=== PATIENT | male | born 1990 | race Caucasian/White ===

== ENCOUNTER 2019-10-07 13:07 | Emergency (ER) | payer BC, SELFPAY ==
[2019-10-07] MEDS ORDERED: Adacel (T-DAP) 0.5 ML SYRINGE ONE (13:32)
--- NOTE | 2019-10-07 14:00 | CT ---
CT head noncontrast HISTORY: Injury. Headache. FINDINGS: There is no evidence of acute intracranial hemorrhage or infarct. The ventricles appear nor mal in size, shape and position. There is no mass effect or shift of midline structures. Visualized paranasal sinuses remain well aerated. IMPRESSION: No acute intracranial abnormalities are demonstrated.
[2019-10-07] MEDS ORDERED: Ketorolac Tromethamine 30 MG/ML VIAL ONE (14:20)
== END 2019-10-07 14:43 | disposition home or self-care (01) ==
LOC: ERS 13:07
DX: S06.0X9A Concussion with loss of consciousness of unspecified duration, initial encounter (principal); S00.01XA Abrasion of scalp, initial encounter; Z23 Encounter for immunization; W22.8XXA Striking against or struck by other objects, initial encounter
CPT/HCPCS: 70450; 90471; 90715; 96372; J1885

== ENCOUNTER 2020-04-16 14:40 | Outpatient (CLI) | payer BC ==
--- NOTE | 2020-04-16 16:06 | MRI ---
MRI BRAIN AND INTERNAL AUDITORY CANALS WITH AND WITHOUT CONTRAST: 04/16/20 HISTORY: 29-year-old male with bilateral tinnitus, right worse than left. Headache. TECHNIQUE: Multiple sequences obtained in axial, sagittal, and coronal planes; both whole brain images and thin slices through the IAC's, pre and post IV injection of gadolinium-based contrast agent. FINDINGS: The ventricles are normal in size and configuration. There is no major intraaxial signal abnormality , restricted diffusion, abnormal intraaxial enhancement, mass, midline shift or any other mass effect , recent intraaxial hemorrhage, or extraaxial fluid collection. There is no abnormal enhancement, mass, or morphologic abnormality, involving the cerebellopontine an gles, 7th-8th nerve complexes, internal auditory canals, cochleae, vestibules, vestibular aqueducts, or semicircular canals. AICA (anterior-inferior cerebellar arteries) or their proximal branches, loop into the medial aspects of the bilateral internal auditory canal. There is mucosal thickening in the bilateral ethmoid, sphenoid, and maxillary sinuses. Mucous retention cysts in the sphenoid and left maxillary sinuses. IMPRESSION: Essentially normal. jnr POS: OFF
== END 2020-04-16 14:41 | disposition home or self-care (01) ==
LOC: TBSIIMAG 14:40
PROVIDERS: ATTEND Neurological Surgery
DX: R51 Headache (principal)
CPT/HCPCS: 70553

== ENCOUNTER 2021-09-23 07:36 | Day surgery (SDC) | payer BC ==
[2021-09-23] MEDS ORDERED: Dexmedetomidine 200 MCG/2 ML VIAL ONE (09:47)
[2021-09-23] MEDS ORDERED: Fentanyl 250 MCG/5 ML VIAL ONE (09:47)
[2021-09-23] MEDS ORDERED: Bupivacaine 0.25% HCL 30 ML VIAL ONE (10:00)
[2021-09-23] MEDS ORDERED: Xylocaine 1% w/ Epi 1:100K 10 ML VIAL ONE (10:00)
[2021-09-23] MEDS ORDERED: EPINEPHrine 1 MG/ML AMP ONE (10:01)
[2021-09-23] MEDS ORDERED: Midazolam HCl 2 mg/2 ml Vial ONE (10:09)
[2021-09-23] MEDS ORDERED: ceFAZolin (BATCH) 2 GM/100 ML BAG ONE (10:11)
[2021-09-23] MEDS ORDERED: Succinylcholine 200 MG/10 ml SYRINGE FS ONE (10:19)
[2021-09-23] MEDS ORDERED: Dexamethasone 20 MG/5 ML VIAL ONE (10:19)
[2021-09-23] MEDS ORDERED: Glycopyrrolate 0.2 MG/ML 5 ML SYRINGE ONE (10:19)
[2021-09-23] MEDS ORDERED: Ondansetron PF 4 MG/2 ML Vial ONE (10:19)
[2021-09-23] MEDS ORDERED: Lidocaine 1% PF 5 ML VIAL ONE (10:19)
[2021-09-23] MEDS ORDERED: PROPOFOL 200 MG/20 ML VIAL ONE (10:19)
[2021-09-23] MEDS ORDERED: Rocuronium Bromide 10 MG/ML (10ML VIAL) ONE (10:19)
[2021-09-23] MEDS ORDERED: Ketorolac Tromethamine 30 MG/ML VIAL ONE (10:19)
== END 2021-09-23 14:05 | disposition home or self-care (01) ==
LOC: SDC 07:36
PROVIDERS: ATTEND Surgery
PROC: 0DTJ4ZZ Resection of Appendix, Percutaneous Endoscopic Approach (ICD-10-PCS; principal; 2021-09-23)
DX: K35.30 Acute appendicitis with localized peritonitis, without perforation or gangrene (principal); K36 Other appendicitis
CPT/HCPCS: 88304; J0171; J0690; J1100; J1885; J2250; J2405; J2704; J3010; S0020